=== PATIENT | female | born 1955 | race Caucasian/White ===

== ENCOUNTER 2017-10-08 18:16 | Emergency (ER) | payer MEDICAID ==
[2017-10-08 18:26] VITALS: BP 159/51; PULSE 77; RESP 16; TEMP 99.1; O2SAT 91
--- NOTE | 2017-10-08 19:37 | EDPHY ---
H & P Stated Complaint: swelling to left lower leg since Thursday. Sent by to R/O DVT Time Seen by Provider: 10/08/17 19:28 HPI/ROS: CHIEF COMPLAINT: Leg swelling HISTORY OF PRESENT ILLNESS: The patient is a 62 y/o female with a history of psoriasis and diabetes who arrives at the referral of urgent care for a possible DVT in her left lower leg. She flew in from [place] for vacation 3 days ago and developed left calf swelling and pain shortly after landing here. Associated with lower leg redness. She has ongoing psoriasis plaques on both lower legs and has had cellulitic infections on her legs in the past. She also notes she had a fever on Thursday. She denies shortness of breath or chest pain. She has never had a blood clot before and does not use anticoagulants. REVIEW OF SYSTEMS: Constitutional: +fever, no chills Eyes: No visual changes ENT: No sore throat Respiratory: No cough, no shortness of breath Cardiac: No chest pain Gastrointestinal: No nausea, no vomiting, no abdominal pain Genitourinary: no dysuria Neurological: No headache, no weakness Psychiatric: No depression - Personal History Current Tetanus Diphtheria and Acellular Pertussis (TDAP): Unsure - Medical/Surgical History PMH: PMH includes: 1. History of cellulitis 2. Frozen shoulder 3. Hypertension 4. Diabetes 5. Psoriasis Hx Asthma: No Hx Chronic Respiratory Disease: No Hx Diabetes: Yes Hx Cardiac Disease: No Hx Renal Disease: No Hx Cirrhosis: No Hx Alcoholism: No Hx HIV/AIDS: No Hx Splenectomy or Spleen Trauma: No Other PMH: DM2. HTN - Social History Smoking Status: Current every day smoker Additional Social History: Smoker. Visiting from [place], [place]. Daughter lives locally. - Physical Exam Exam: General Appearance: Alert, pleasant Eyes: Pupils equal and round, no conjunctival injection ENT, Mouth: Mucous membranes moist Neck: Normal inspection Respiratory: Lungs are clear to auscultation Cardiovascular: Regular rate and rhythm Gastrointestinal: Abdomen is soft and non- tender Neurological: A&O, nonfocal, normal gait Skin: Warm and dry, no rash Extremities: Left leg: erythema warmth and swelling of distal lower leg that extends into foot, negative Homans sign, thigh is normal. Psoriasis plaques on anterior lower legs bilaterally. Psychiatric: Mood and affect normal Constitutional: Initial Vital Signs Temperature (C) 37.3 C 10/08/17 18:22 Heart Rate 77 10/08/17 18:22 Respiratory Rate 16 10/08/17 18:22 Blood Pressure 159/51 H 10/08/17 18:22 O2 Sat (%) 91 L 10/08/17 18:22 O2 Delivery Mode Room Air Allergies/Adverse Reactions: No Known Allergies Allergy (Unverified 10/08/17 18:26) Home Medications: Medication Instructions Recorded Cephalexin [Keflex (*)] 500 mg PO QID #40 cap 10/08/17 Doxycycline Hyclate 100 mg PO BID #20 tablet 10/08/17 Lisinopril 10/08/17 Metformin HCl 10/08/17 Medical Decision Making - Diagnostics Imaging Results: Imaging Impressions Extremity Venous Study 10/08/17 19:29 Impression: No evidence of deep vein thrombosis in the left leg. Findings and recommendations discussed with MELANIA LOFTON at 2050 hour, 2016. Final report concurs with initial preliminary interpretation. Imaging: Discussed imaging studies w/ production bow maker Radiologist ED Course/Re-evaluation: This is a 62 y/o female who presents with a few-day history of left lower leg pain and swelling that began shortly after flying here from [place]. She has a history of diabetes, psoriasis, and prior cellulitis on her legs. She denies any respiratory or systemic symptoms. Plan for US to rule out DVT. If negative, will treat as cellulitis with a course of Keflex. US negative. Reassessed patient and discussed results. She will be discharged home on Keflex with standard follow up and return precautions. She also asked for a script for Doxycycline as well because that's what worked for her prior infection. I've written this for her to fill if she is not improving, but asked that she use the Keflex first. She agrees with plan for discharge. Differential Diagnosis: Differential diagnosis includes though it is not limited to fracture, dislocation, tendon disruption, neurovascular compromise. - Data Points Medications Given: Discontinued Medications Cephalexin HCl (Keflex) 500 mg PO EDNOW ONE PRN Reason: Protocol Stop: 10/08/17 21:07 Last Admin: 10/08/17 21:10 Dose: 500 mg Departure - Departure Disposition: Home, Routine, Self-Care Clinical Impression: Cellulitis Qualifiers: Site of cellulitis: extremity Site of cellulitis of extremity: lower extremity Laterality: left Qualified Code(s): L03.116 - Cellulitis of left lower limb Condition: Good Instructions: Cephalexin (By mouth), Cellulitis (ED) Additional Instructions: 1. Take Keflex as prescribed. Be sure to complete the entire prescription. 2. Use Tylenol as directed on the packaging as needed for pain or fever over the next few days. 3. Follow up with your primary care provider upon your return home. 4. Return to the ED or nearest facility for severe pain, shortness of breath, chest pain, uncontrollable fever, dramatic increase in redness or swelling, or other worsening of condition. Referrals: [facility] PRATT [Other] - As per Instructions Prescriptions: Cephalexin [Keflex (*)] 500 mg PO QID #40 cap Doxycycline Hyclate 100 mg PO BID #20 tablet Report Scribed for: Melania Lofton Report Scribed by: Chastity Juarez Date of Report: 10/08/17 Time of Report: 19:39 Physician Review and Approval Statement: 10/08/17 19:42 Portions of this note were transcribed by a medical office representative. I personally performed a history, physical exam, medical decision making, and confirmed accuracy of information the transcribed note.
[2017-10-08] MEDS ORDERED: CEPHALEXIN 500 MG CAP PO ONE ×2 (21:06→21:07)
== END 2017-10-08 21:12 | disposition home or self-care (01) ==
DX: L03.116 Cellulitis of left lower limb (principal); I10 Essential (primary) hypertension; E11.9 Type 2 diabetes mellitus without complications; F17.200 Nicotine dependence, unspecified, uncomplicated; Z79.84 Long term (current) use of oral hypoglycemic drugs